=== PATIENT | female | born 1985 | race Two or more races ===

== ENCOUNTER 2022-05-20 17:01 | Emergency (ER) | payer SELFPAY ==
[~2022-05-20] VITALS: Ht 167.6 cm; Wt 80.0 kg
[2022-05-20 18:24] VITALS: BP 137/83
[2022-05-20] MEDS ORDERED: KETOROLAC TROMETH 60MG/2ML VIAL IM ONE (18:30)
[2022-05-20] MEDS ORDERED: IBUP800T27 PO (18:31)
[2022-05-20] MEDS ORDERED: CYCL-837 PO (18:31)
[2022-05-20 19:16] LABS: Urine Bacteria FEW /hpf (None Seen); Urine Blood 3+ /uL (Negative); Urine Mucus FEW (None Seen); Urine Specific Gravity 1.026 (1.001-1.035); Urine WBC 32 /hpf (0 - 5)
[2022-05-20] MEDS ORDERED: SULF800T7 PO (19:55)
== END 2022-05-20 20:03 | disposition home or self-care (01) ==
LOC: ER 17:01
DX: N39.0 Urinary tract infection, site not specified (principal); M54.42 Lumbago with sciatica, left side
CPT/HCPCS: 81001; 81025; 96372; 99283; J1885